=== PATIENT | female | born 1965 | race American Indian/Alaskan Native ===

== ENCOUNTER 2019-02-05 18:58 | Observation (INO) | payer MEDICAID, SELFPAY ==
[2019-02-05] MEDS ORDERED: NACL 0.9% 1000 ML IV ONE (20:12)
--- NOTE | 2019-02-05 20:24 | Emergency Department Report ---
ED General Adult HPI - General Chief complaint: Medical Clearance Stated complaint: LBP Time Seen by Provider: 02/05/19 20:06 Source: EMS Mode of arrival: Stretcher Limitations: Physical Limitation - History of Present Illness Initial comments: Mrs. Goff is a 53 yo female who presents with left ankle pain from SNF. She twisted her ankle. 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 Had reported low blood pressure which has been confirmed here in our ED. Hx of CVA, COPD, anxiety, MDD, bipolar disorder, UTI, schizophrenia, chronic wound, diabetes, HTN. No other concerns. -: Gradual, unknown Location: left, lower extremity Severity scale (0 -10): 0 Consistency: constant Improves with: none Worsens with: none Associated Symptoms: denies other symptoms - Related Data Home Medications Medication Instructions Recorded Confirmed Last Taken Acyclovir [Zovirax Tab] 400 mg PO Q8H 04/15/16 04/15/16 Unknown Amlodipine Besylate [Norvasc] 10 mg PO DAILY 04/15/16 04/15/16 Unknown Aspirin [Aspirin TAB] 325 mg PO QDAY 04/15/16 04/15/16 Unknown AtorvaSTATin [Lipitor] 20 mg PO DAILY 04/15/16 04/15/16 Unknown Citalopram [Celexa] 20 mg PO QDAY 04/15/16 04/15/16 Unknown Clindamycin Phosphate [Cleocin T 60 ml TP DAILY 04/15/16 04/15/16 Unknown 1% TOPICAL LOTION] Donepezil [Aricept] 10 mg PO QDAY 04/15/16 04/15/16 Unknown Fluconazole [Diflucan TAB] 150 mg PO ONCE 04/15/16 04/15/16 Unknown Insulin Glargine [Lantus VIAL] 0 units SQ QHS 04/15/16 04/15/16 Unknown Insulin Regular, Human [HumuLIN R] 0 unit SQ ACHS 04/15/16 04/15/16 Unknown Potassium Chloride [Klor-Con 10] 10 meq PO DAILY 04/15/16 04/15/16 Unknown QUEtiapine [SEROquel] 25 mg PO BID 04/15/16 04/15/16 Unknown Quetiapine Fumarate [SEROquel] 50 mg PO BID 04/15/16 04/15/16 Unknown Sertraline [Zoloft] 50 mg PO QDAY 04/15/16 04/15/16 Unknown Terbinafine HCl [Antifungal] 30 gm TP DAILY 04/15/16 04/15/16 Unknown clonazePAM [Klonopin] 0.5 mg PO BID 04/15/16 04/15/16 Unknown hydroCHLOROthiazide [HCTZ] 25 mg PO QDAY 04/15/16 04/15/16 Unknown traMADol [Ultram 50 MG tab] 50 mg PO Q6HR PRN 04/15/16 04/15/16 Unknown Previous Rx's Medication Instructions Recorded Last Taken Type ALBUTEROL Inhaler (OR & NICU) 1 puff IH Q4H PRN #1 inha 11/06/16 Unknown Rx [ProAir HFA Inhaler] Prednisone [predniSONE 10 mg 10 mg PO .TAPER #1 tab.ds.pk 11/06/16 Unknown Rx (6-Day Pack, 21 Tabs)] levoFLOXacin [Levaquin TAB] 500 mg PO QDAY #6 tablet 11/06/16 Unknown Rx Allergies Allergy/AdvReac Type Severity Reaction Status Date / Time No Known Allergies Allergy Unverified 09/21/13 21:31 ED Review of Systems ROS: Stated complaint: LBP Other details as noted in HPI Comment: All other systems reviewed and negative Constitutional: denies: fever, malaise Cardiovascular: denies: chest pain Endocrine: denies: flushing ED Past Medical Hx - Past Medical History Previous Medical History?: Yes Hx Hypertension: Yes Hx CVA: Yes (3 years ago) Hx Congestive Heart Failure: No Hx Diabetes: No Hx Psychiatric Treatment: Yes Hx Asthma: No Hx COPD: No - Surgical History Additional Surgical History: Lives alone but family sees her everyday.. KALLIE - Social History Smoking Status: Former Smoker Substance Use Type: None - Medications Home Medications: Home Medications Medication Instructions Recorded Confirmed Last Taken Type Acyclovir [Zovirax Tab] 400 mg PO Q8H 04/15/16 04/15/16 Unknown History Amlodipine Besylate [Norvasc] 10 mg PO DAILY 04/15/16 04/15/16 Unknown History Aspirin [Aspirin TAB] 325 mg PO QDAY 04/15/16 04/15/16 Unknown History AtorvaSTATin [Lipitor] 20 mg PO DAILY 04/15/16 04/15/16 Unknown History Citalopram [Celexa] 20 mg PO QDAY 04/15/16 04/15/16 Unknown History Clindamycin Phosphate [Cleocin T 60 ml TP DAILY 04/15/16 04/15/16 Unknown History 1% TOPICAL LOTION] Donepezil [Aricept] 10 mg PO QDAY 04/15/16 04/15/16 Unknown History Fluconazole [Diflucan TAB] 150 mg PO ONCE 04/15/16 04/15/16 Unknown History Insulin Glargine [Lantus VIAL] 0 units SQ QHS 04/15/16 04/15/16 Unknown History Insulin Regular, Human [HumuLIN R] 0 unit SQ ACHS 04/15/16 04/15/16 Unknown History Potassium Chloride [Klor-Con 10] 10 meq PO DAILY 04/15/16 04/15/16 Unknown History QUEtiapine [SEROquel] 25 mg PO BID 04/15/16 04/15/16 Unknown History Quetiapine Fumarate [SEROquel] 50 mg PO BID 04/15/16 04/15/16 Unknown History Sertraline [Zoloft] 50 mg PO QDAY 04/15/16 04/15/16 Unknown History Terbinafine HCl [Antifungal] 30 gm TP DAILY 04/15/16 04/15/16 Unknown History clonazePAM [Klonopin] 0.5 mg PO BID 04/15/16 04/15/16 Unknown History hydroCHLOROthiazide [HCTZ] 25 mg PO QDAY 04/15/16 04/15/16 Unknown History traMADol [Ultram 50 MG tab] 50 mg PO Q6HR PRN 04/15/16 04/15/16 Unknown History ALBUTEROL Inhaler (OR & NICU) 1 puff IH Q4H PRN #1 inha 11/06/16 Unknown Rx [ProAir HFA Inhaler] Prednisone [predniSONE 10 mg 10 mg PO .TAPER #1 tab.ds.pk 11/06/16 Unknown Rx (6-Day Pack, 21 Tabs)] levoFLOXacin [Levaquin TAB] 500 mg PO QDAY #6 tablet 11/06/16 Unknown Rx ED Physical Exam - General Limitations: Physical Limitation General appearance: alert, in no apparent distress - Head Head exam: Present: atraumatic, normocephalic - Eye Eye exam: Present: normal appearance - ENT ENT exam: Present: mucous membranes moist - Neck Neck exam: Present: normal inspection - Respiratory Respiratory exam: Present: normal lung sounds bilaterally. Absent: respiratory distress, wheezes, rhonchi - Cardiovascular Cardiovascular Exam: Present: regular rate, normal rhythm, normal heart sounds. Absent: systolic murmur, diastolic murmur, rubs, gallop - GI/Abdominal GI/Abdominal exam: Present: soft, normal bowel sounds. Absent: distended, tenderness, guarding, rebound - Extremities Exam Extremities exam: Present: normal inspection - Back Exam Back exam: Present: normal inspection - Neurological Exam Neurological exam: Present: alert, oriented X3 - Psychiatric Psychiatric exam: Present: normal affect, normal mood - Skin Skin exam: Present: warm, dry, intact, normal color. Absent: rash ED Course Vital Signs 02/05/19 02/05/19 02/05/19 19:56 22:04 23:00 Temperature 97.9 F Pulse Rate 93 H 93 H 79 Respiratory 13 18 10 L Rate Blood Pressure 89/58 121/72 126/73 [Right] O2 Sat by Pulse 94 97 97 Oximetry ED Medical Decision Making - Lab Data Result diagrams: 02/05/19 20:22 02/05/19 20:22 Laboratory Results - last 24 hr 02/05/19 02/05/19 02/05/19 19:46 20:22 20:22 WBC 11.0 RBC 5.18 H Hgb 14.6 H Hct 44.6 H MCV 86 MCH 29 MCHC 33 RDW 14.6 Plt Count 270 Lymph % (Auto) 17.5 [place] % (Auto) 4.3 Eos % (Auto) 0.2 Baso % (Auto) 0.5 Lymph # 1.9 [place] # 0.5 Eos # 0.0 Baso # 0.1 Seg Neutrophils % 77.5 H Seg Neutrophils # 8.5 H Sodium 142 Potassium 4.3 Chloride 98.7 Carbon Dioxide 20 L Anion Gap 28 BUN 19 H Creatinine 1.2 Estimated GFR 56 BUN/Creatinine Ratio 16 Glucose 235 H POC Glucose 237 H Lactic Acid Calcium 9.8 Total Bilirubin < 0.20 AST 7 ALT 7 Alkaline Phosphatase 64 Total Protein 7.8 Albumin 3.6 L Albumin/Globulin Ratio 0.9 Urine Color Urine Turbidity Urine pH Ur Specific [place] Urine Protein Urine Glucose (UA) Urine Ketones Urine Blood Urine Nitrite Urine Bilirubin Urine Urobilinogen Ur Leukocyte Esterase Urine WBC (Auto) Urine RBC (Auto) U Epithel Cells (Auto) Urine Bacteria (Auto) Hyaline Casts Urine Mucus Valproic Acid 02/05/19 02/05/19 02/05/19 20:22 20:38 21:07 WBC RBC Hgb Hct MCV MCH MCHC RDW Plt Count Lymph % (Auto) [place] % (Auto) Eos % (Auto) Baso % (Auto) Lymph # [place] # Eos # Baso # Seg Neutrophils % Seg Neutrophils # Sodium Potassium Chloride Carbon Dioxide Anion Gap BUN Creatinine Estimated GFR BUN/Creatinine Ratio Glucose POC Glucose Lactic Acid 8.10 H* 6.90 H* Calcium Total Bilirubin AST ALT Alkaline Phosphatase Total Protein Albumin Albumin/Globulin Ratio Urine Color Urine Turbidity Urine pH Ur Specific [place] Urine Protein Urine Glucose (UA) Urine Ketones Urine Blood Urine Nitrite Urine Bilirubin Urine Urobilinogen Ur Leukocyte Esterase Urine WBC (Auto) Urine RBC (Auto) U Epithel Cells (Auto) Urine Bacteria (Auto) Hyaline Casts Urine Mucus Valproic Acid 47.5 L 02/05/19 Unknown WBC RBC Hgb Hct MCV MCH MCHC RDW Plt Count Lymph % (Auto) [place] % (Auto) Eos % (Auto) Baso % (Auto) Lymph # [place] # Eos # Baso # Seg Neutrophils % Seg Neutrophils # Sodium Potassium Chloride Carbon Dioxide Anion Gap BUN Creatinine Estimated GFR BUN/Creatinine Ratio Glucose POC Glucose Lactic Acid Calcium Total Bilirubin AST ALT Alkaline Phosphatase Total Protein Albumin Albumin/Globulin Ratio Urine Color Yellow Urine Turbidity Slightly-cloudy Urine pH 5.0 Ur Specific [place] 1.019 Urine Protein 30 mg/dl Urine Glucose (UA) Neg Urine Ketones Tr Urine Blood Neg Urine Nitrite Neg Urine Bilirubin Neg Urine Urobilinogen < 2.0 Ur Leukocyte Esterase Neg Urine WBC (Auto) 3.0 Urine RBC (Auto) < 1.0 U Epithel Cells (Auto) 2.0 Urine Bacteria (Auto) 2+ Hyaline Casts 6 Urine Mucus 2+ Valproic Acid Vital Signs - 24 hr 02/05/19 19:56 Temperature 97.9 F Pulse Rate 93 H Respiratory 13 Rate Blood Pressure 89/58 [Right] O2 Sat by Pulse 94 Oximetry Laboratory Results - last 24 hr 02/05/19 02/05/19 02/05/19 19:46 20:22 20:22 WBC 11.0 RBC 5.18 H Hgb 14.6 H Hct 44.6 H MCV 86 MCH 29 MCHC 33 RDW 14.6 Plt Count 270 Lymph % (Auto) 17.5 [place] % (Auto) 4.3 Eos % (Auto) 0.2 Baso % (Auto) 0.5 Lymph # 1.9 [place] # 0.5 Eos # 0.0 Baso # 0.1 Seg Neutrophils % 77.5 H Seg Neutrophils # 8.5 H Sodium 142 Potassium 4.3 Chloride 98.7 Carbon Dioxide 20 L Anion Gap 28 BUN 19 H Creatinine 1.2 Estimated GFR 56 BUN/Creatinine Ratio 16 Glucose 235 H POC Glucose 237 H Lactic Acid Calcium 9.8 Total Bilirubin < 0.20 AST 7 ALT 7 Alkaline Phosphatase 64 Troponin T NT-Pro-B Natriuret Pep Total Protein 7.8 Albumin 3.6 L Albumin/Globulin Ratio 0.9 Urine Color Urine Turbidity Urine pH Ur Specific [place] Urine Protein Urine Glucose (UA) Urine Ketones Urine Blood Urine Nitrite Urine Bilirubin Urine Urobilinogen Ur Leukocyte Esterase Urine WBC (Auto) Urine RBC (Auto) U Epithel Cells (Auto) Urine Bacteria (Auto) Hyaline Casts Urine Mucus Valproic Acid 02/05/19 02/05/19 02/05/19 20:22 20:38 21:07 WBC RBC Hgb Hct MCV MCH MCHC RDW Plt Count Lymph % (Auto) [place] % (Auto) Eos % (Auto) Baso % (Auto) Lymph # [place] # Eos # Baso # Seg Neutrophils % Seg Neutrophils # Sodium Potassium Chloride Carbon Dioxide Anion Gap BUN Creatinine Estimated GFR BUN/Creatinine Ratio Glucose POC Glucose Lactic Acid 8.10 H* 6.90 H* Calcium Total Bilirubin AST ALT Alkaline Phosphatase Troponin T NT-Pro-B Natriuret Pep Total Protein Albumin Albumin/Globulin Ratio Urine Color Urine Turbidity Urine pH Ur Specific [place] Urine Protein Urine Glucose (UA) Urine Ketones Urine Blood Urine Nitrite Urine Bilirubin Urine Urobilinogen Ur Leukocyte Esterase Urine WBC (Auto) Urine RBC (Auto) U Epithel Cells (Auto) Urine Bacteria (Auto) Hyaline Casts Urine Mucus Valproic Acid 47.5 L 02/05/19 02/05/19 22:02 Unknown WBC RBC Hgb Hct MCV MCH MCHC RDW Plt Count Lymph % (Auto) [place] % (Auto) Eos % (Auto) Baso % (Auto) Lymph # [place] # Eos # Baso # Seg Neutrophils % Seg Neutrophils # Sodium Potassium Chloride Carbon Dioxide Anion Gap BUN Creatinine Estimated GFR BUN/Creatinine Ratio Glucose POC Glucose Lactic Acid Calcium Total Bilirubin AST ALT Alkaline Phosphatase Troponin T < 0.010 NT-Pro-B Natriuret Pep 3107 H Total Protein Albumin Albumin/Globulin Ratio Urine Color Yellow Urine Turbidity Slightly-cloudy Urine pH 5.0 Ur Specific [place] 1.019 Urine Protein 30 mg/dl Urine Glucose (UA) Neg Urine Ketones Tr Urine Blood Neg Urine Nitrite Neg Urine Bilirubin Neg Urine Urobilinogen < 2.0 Ur Leukocyte Esterase Neg Urine WBC (Auto) 3.0 Urine RBC (Auto) < 1.0 U Epithel Cells (Auto) 2.0 Urine Bacteria (Auto) 2+ Hyaline Casts 6 Urine Mucus 2+ Valproic Acid - EKG Data 02/05/19 22:28 EKG obtained 2223 Normal sinus rhythm rate 95 beats a minute normal axis nonspecific T wave pattern diffuse T-wave inversions no ST elevation - Radiology Data Radiology results: report reviewed, image reviewed AP portable chest x-ray no acute process according to radiology report, possible avulsion fracture of the talar joint, according to her ankle foot x-rays - Medical Decision Making Hypotension with lactic acidosis DDX: sepsis, malignancy, medication, recent seizure activity Treated with broad spectrum antibiotics and 30 ml/kg IVF NS with improvement of blood pressure. No tachycardia or fever presents. No obvious source of infection Admitted to hospitalist service in stable condition Suspect avulsion talar fracture due to inadvertent injury with hx of hemiplegia, left posterior splint was applied to the affected extremity under my supervision. After application the extremity was neurovascularly intact with acceptable alignment. Critical Care Time: Yes Critical care time in (mins) excluding proc time.: 40 Critical care attestation.: If time is entered above; I have spent that time in minutes in the direct care of this critically ill patient, excluding procedure time. 40 minutes of critical care time excluding procedures were used in the care of the patient. Initially concerned for causes of shock such as hemorrhagic, cardiogenic versus septic shock. Patient required multiple assessments and interventions. I reviewed the electronic medical record and residential documentation. I spoke with information systems consultant involved in the care of the patient. ED Disposition Clinical Impression: Hypotension, Lactic acidosis, Closed avulsion fracture of left talus Disposition: OP ADMIT IP TO THIS HOSP Is pt being admited?: Yes Does the pt Need Aspirin: No Condition: Stable Referrals: ROCKY CALLEJAS MD [Primary Care Provider] - 3-5 Days
[2019-02-05 20:41] LABS: Basophils # (Auto) 0.1 K/mm3 (0.0-0.1); Basophils % (Auto) 0.5 % (0.0-1.8); Eosinophils % (Auto) 0.2 % (0.0-4.3); Hemoglobin 14.6 gm/dl (10.1-14.3); Lymphocytes # (Auto) 1.9 K/mm3 (1.2-5.4); Lymphocytes % (Auto) 17.5 % (13.4-35.0); Monocytes # (Auto) 0.5 K/mm3 (0.0-0.8); Monocytes % (Auto) 4.3 % (0.0-7.3)
[2019-02-05 20:51] LABS: Hematocrit 44.6 % (30.3-42.9); Mean Corpuscular Volume 86 fl (79-97); Red Blood Count 5.18 M/mm3 (3.65-5.03)
[2019-02-05 20:52] LABS: Mean Corpuscular HGB Conc 33 % (30-34); Platelet Count 270 K/mm3 (140-440); Red Cell Distribution Width 14.6 % (13.2-15.2)
[2019-02-05 21:02] LABS: Alanine Aminotransferase 7 units/L (7-56); Albumin 3.6 g/dL (3.9-5); BUN/Creatinine Ratio 16; Blood Urea Nitrogen 19 mg/dL (7-17); Calcium 9.8 mg/dL (8.4-10.2); Hemolysis Index 5
[2019-02-05 21:29] LABS: Bacteria,Urine 2+ /HPF (Negative); Bilirubin,Urine NEG (Negative); Blood,Urine NEG (Negative); Color,Urine Yellow (Yellow); Hyaline Casts,Urine 6 /LPF; Mucus,Urine 2+ /HPF; RBC,Urine < 1.0 /HPF (0.0-6.0); Urobilinogen,Urine < 2.0 mg/dL (<2.0)
--- NOTE | 2019-02-05 21:38 | XRay Report ---
PROCEDURE: XR CHEST 1V AP TECHNIQUE: Chest radiograph single view. HISTORY: hypotension COMPARISONS: None . FINDINGS: Heart: Normal. Mediastinum/Vessels: Normal. Lungs/Pleural space: Normal. Bony thorax: No acute osseous abnormality. Life support devices: None. IMPRESSION: No acute cardiopulmonary abnormality. This document is electronically signed by Elana Monae MD., Feb 05 2019 09:35:56 PM ET
--- NOTE | 2019-02-05 21:42 | XRay Report ---
PROCEDURE: XR ANKLE 3+V LT TECHNIQUE: 3 views of the left ankle obtained. HISTORY: ankle pain COMPARISONS: None FINDINGS: Small osseous fragment seen of the lateral aspect of the talus may represent avulsion fracture. Ankle mortise is intact. IMPRESSION: Small osseous fragment seen of the lateral aspect of the talus may represent avulsion fracture. . This document is electronically signed by Elana Monae MD., Feb 05 2019 09:39:48 PM ET
--- NOTE | 2019-02-05 21:52 | XRay Report ---
PROCEDURE: XR FOOT 3+V LT TECHNIQUE: 3 views of the right foot obtained. HISTORY: foot pain COMPARISONS: None FINDINGS: Bones are osteopenic limiting full evaluation. No gross acute fracture visualized. Degenerative wallace es seen at the first tarsal/metatarsal joint. IMPRESSION: No gross acute fracture visualized. Degenerative changes seen at the first tarsal/metatarsal joint. This document is electronically signed by Elana Monae MD., Feb 05 2019 09:50:00 PM ET
[2019-02-05] MEDS ORDERED: SODIUM CHLORIDE FLUSH SYRINGE 10 ML IV PRN (22:59)
[2019-02-05] MEDS ORDERED: TYLENOL PO PRN (22:59)
[2019-02-05] MEDS ORDERED: ZOFRAN IV PRN (22:59)
[2019-02-05] MEDS: MAXIPIME/NS 2 GM/100 ML 2 GM/100 ML BAG IV SCH (23:00)
--- NOTE | 2019-02-05 23:01 | History and Physical Report ---
History of Present Illness Date of examination: 02/05/19 History of present illness: 51-year-old woman history of hypertension, diabetes, CVA with left-sided hemiparesis, bipolar sent to the emergency room for evaluation of low blood pressure. Patient stated that she twisted her ankle, her history is very difficult to obtain from patient, unable to obtain review of systems PAST MEDICAL HISTORY :hypertension, diabetes, CVA with left-sided hemiparesis, bipolar PAST SURGICAL HISTORY: Tubal ligation SOCIAL HISTORY: Denies focal, , drugs, smoke a pack a day FAMILY HISTORY: Hypertension Medications and Allergies Allergies Allergy/AdvReac Type Severity Reaction Status Date / Time No Known Allergies Allergy Unverified 09/21/13 21:31 Home Medications Medication Instructions Recorded Confirmed Last Taken Type Acyclovir [Zovirax Tab] 400 mg PO Q8H 04/15/16 04/15/16 Unknown History Amlodipine Besylate [Norvasc] 10 mg PO DAILY 04/15/16 04/15/16 Unknown History Aspirin [Aspirin TAB] 325 mg PO QDAY 04/15/16 04/15/16 Unknown History AtorvaSTATin [Lipitor] 20 mg PO DAILY 04/15/16 04/15/16 Unknown History Citalopram [Celexa] 20 mg PO QDAY 04/15/16 04/15/16 Unknown History Clindamycin Phosphate [Cleocin T 60 ml TP DAILY 04/15/16 04/15/16 Unknown History 1% TOPICAL LOTION] Donepezil [Aricept] 10 mg PO QDAY 04/15/16 04/15/16 Unknown History Fluconazole [Diflucan TAB] 150 mg PO ONCE 04/15/16 04/15/16 Unknown History Insulin Glargine [Lantus VIAL] 0 units SQ QHS 04/15/16 04/15/16 Unknown History Insulin Regular, Human [HumuLIN R] 0 unit SQ ACHS 04/15/16 04/15/16 Unknown History Potassium Chloride [Klor-Con 10] 10 meq PO DAILY 04/15/16 04/15/16 Unknown History QUEtiapine [SEROquel] 25 mg PO BID 04/15/16 04/15/16 Unknown History Quetiapine Fumarate [SEROquel] 50 mg PO BID 04/15/16 04/15/16 Unknown History Sertraline [Zoloft] 50 mg PO QDAY 04/15/16 04/15/16 Unknown History Terbinafine HCl [Antifungal] 30 gm TP DAILY 04/15/16 04/15/16 Unknown History clonazePAM [Klonopin] 0.5 mg PO BID 04/15/16 04/15/16 Unknown History hydroCHLOROthiazide [HCTZ] 25 mg PO QDAY 04/15/16 04/15/16 Unknown History traMADol [Ultram 50 MG tab] 50 mg PO Q6HR PRN 04/15/16 04/15/16 Unknown History ALBUTEROL Inhaler (OR & NICU) 1 puff IH Q4H PRN #1 inha 11/06/16 Unknown Rx [ProAir HFA Inhaler] Prednisone [predniSONE 10 mg 10 mg PO .TAPER #1 tab.ds.pk 11/06/16 Unknown Rx (6-Day Pack, 21 Tabs)] levoFLOXacin [Levaquin TAB] 500 mg PO QDAY #6 tablet 11/06/16 Unknown Rx Active Meds: Active Medications Cefepime HCl (Maxipime/Ns 2 Gm/100 Ml) 2 gm in 100 mls @ 200 mls/hr IV Q12H COUNT INCLUDES THE [facility]; Protocol Exam - Physical Exam Narrative exam: en. appearance: Patient lying in bed, no apparent distress HEENT: Normocephalic, atraumatic, pupils equally round and reactive to light, extraocular movement intact, and no sclericterus,. No JVD or thyromegaly or nodule,neck supple, no carotid bruit ,mucous membranes moist, no exudate or erythema Heart: S1, S2, regular rate and rhythm Lungs: Decreased course breath sounds bilaterally, breathing comfortable Abdomen: Positive bowel sounds, nontender, nondistended, no organomegaly Extremity: No edema, cyanosis, clubbing Skin: No rash, nodules, warm, dry Neuro: Oriented 3, cranial nerves II-12 intact, speech is fluent sensory intact - Constitutional Vitals: Temp Pulse Resp BP Pulse Ox 97.9 F 79 10 L 126/73 97 02/05/19 19:56 02/05/19 23:00 02/05/19 23:00 02/05/19 23:00 02/05/19 23:00 Results - Labs CBC & Chem 7: 02/05/19 20:22 02/05/19 20:22 Labs: Abnormal lab results 02/05/19 02/05/19 02/05/19 Range/Units 19:46 20:22 20:22 RBC 5.18 H (3.65-5.03) M/mm3 Hgb 14.6 H (10.1-14.3) gm/dl Hct 44.6 H (30.3-42.9) % Seg Neutrophils % 77.5 H (40.0-70.0) % Seg Neutrophils # 8.5 H (1.8-7.7) K/mm3 Carbon Dioxide 20 L (22-30) mmol/L BUN 19 H (7-17) mg/dL Glucose 235 H (65-100) mg/dL POC Glucose 237 H (70-105) Lactic Acid (0.7-2.0) mmol/L Albumin 3.6 L (3.9-5) g/dL Valproic Acid (50-100) ug/mL 02/05/19 02/05/19 02/05/19 Range/Units 20:22 20:38 21:07 RBC (3.65-5.03) M/mm3 Hgb (10.1-14.3) gm/dl Hct (30.3-42.9) % Seg Neutrophils % (40.0-70.0) % Seg Neutrophils # (1.8-7.7) K/mm3 Carbon Dioxide (22-30) mmol/L BUN (7-17) mg/dL Glucose (65-100) mg/dL POC Glucose (70-105) Lactic Acid 8.10 H* 6.90 H* (0.7-2.0) mmol/L Albumin (3.9-5) g/dL Valproic Acid 47.5 L (50-100) ug/mL - Imaging and Cardiology Chest x-ray: report reviewed Assessment and Plan XRAY of foot and ankle are reviewed Assessment Hypotension Possible Ankle Fracture Diabetes History of CVA with left hemiparesis Bipolar Plan Admit to medicine Start IV fluid, follow cultures, empiric antibiotics started Consults orthopedic, check d-dimer Check fingersticks initiate insulin sliding scale Continue appropriate outpatient medication start DVT prophylaxis Addendum check d-dimer, check v/q
[2019-02-05] MEDS ORDERED: D50W (25GM) Syringe IV PRN (23:28)
[2019-02-05] MEDS ORDERED: NACL 0.9% 1000 ML 1,000 ML IV SCH (23:45)
[2019-02-06 06:51] LABS: BUN/Creatinine Ratio 26; Blood Urea Nitrogen 18 mg/dL (7-17); Calcium 8.4 mg/dL (8.4-10.2); Hemolysis Index 9
[2019-02-06 06:59] LABS: Basophils # (Auto) 0.1 K/mm3 (0.0-0.1); Basophils % (Auto) 0.6 % (0.0-1.8); Eosinophils # (Auto) 0.1 K/mm3 (0.0-0.4); Eosinophils % (Auto) 1.3 % (0.0-4.3); Hematocrit 38.7 % (30.3-42.9); Lymphocytes # (Auto) 3.6 K/mm3 (1.2-5.4); Lymphocytes % (Auto) 40.9 % (13.4-35.0); Mean Corpuscular HGB Conc 34 % (30-34); Mean Corpuscular Volume 84 fl (79-97); Monocytes # (Auto) 0.7 K/mm3 (0.0-0.8); Monocytes % (Auto) 8.1 % (0.0-7.3); Platelet Count 241 K/mm3 (140-440); Red Blood Count 4.64 M/mm3 (3.65-5.03); Red Cell Distribution Width 14.2 % (13.2-15.2)
[2019-02-06] MEDS: HumaLOG SUB-Q SCH ×3 (07:30→17:42)
[2019-02-06] MEDS ORDERED: LOVENOX SUB-Q SCH (10:00)
[2019-02-06] MEDS ORDERED: SODIUM CHLORIDE FLUSH SYRINGE 10 ML IV SCH (10:00)
[2019-02-06 12:56] VITALS: BP 97/74
--- NOTE | 2019-02-06 15:01 | Discharge Summary ---
Providers - Providers Date of Admission: 02/05/19 22:59 Date of discharge: 02/06/19 Attending physician: JAYLYN FLETCHER 02/05/19 23:16 Consult to Physician [CONS] Routine Comment: Consulting Provider: KAITLIN THORNTON Physician Instructions: Reason For Exam: ankle fx Primary care physician: PROGRAM SUPPORT CLERK Hospitalization Condition: Stable Hospital course: Hypotension--resolved--Adjusy medicines Ankle sprain History of CVA with left hemiparesis Bipolar V/q scan --Negative Disposition: DC-01 TO HOME OR SELFCARE Core Measure Documentation - Palliative Care Palliative Care/ Comfort Measures: Not Applicable - Core Measures Any of the following diagnoses?: none Exam - Constitutional Vitals: Temp Pulse Resp BP Pulse Ox 98.9 F 53 L 20 97/74 96 02/06/19 11:30 02/06/19 11:30 02/06/19 11:30 02/06/19 11:30 02/06/19 12:49 General appearance: Present: no acute distress, well-nourished - EENT Eyes: Present: PERRL ENT: hearing intact, clear oral mucosa - Neck Neck: Present: supple, normal ROM - Respiratory Respiratory effort: normal Respiratory: bilateral: CTA - Cardiovascular Heart Sounds: Present: S1 & S2. Absent: rub, click - Extremities Extremities: no ischemia, pulses intact, pulses symmetrical, No edema Peripheral Pulses: within normal limits - Abdominal General gastrointestinal: Present: soft, non-tender, non-distended, normal bowel sounds Female genitourinary: Present: normal - Rectal Rectal Exam: deferred - Integumentary Integumentary: Present: clear, warm, dry - Musculoskeletal Musculoskeletal: gait normal, strength equal bilaterally - Psychiatric Psychiatric: appropriate mood/affect, intact judgment & insight - Neurologic Neurologic: CNII-XII intact, moves all extremities - Allied Health Allied health notes reviewed: nursing, case management Plan Weight Bearing Status: Weight Bear as Tolerated Diet: low cholesterol, low salt Follow up with: ROCKY CALLEJAS MD [Staff Physician] - 3-5 Days
--- NOTE | 2019-02-06 15:05 | Nuclear Medicine Report ---
LUNG SCAN, VENTILATION AND PERFUSION: History: Evaluate for PE. Technique: 5mci of Tc99m MAA was infused for the perfusion images. 15mci XE 133 gas was inhaled for the ventilatory images. Correlation is made with a chest x-ray dated 02/05/19. Findings: Inhalation of Xenon gas demonstrates a normal distribution of the activity throughout both lungs. The wash out phases show no focal retention of activity. After injection of Technetium 99m macroaggregated albumin gamma camera imaging of the lungs in multiple projections demonstrates normal pulmonary contours with a homogeneous distribution of activity. No focal areas of perfusion deficiency are identified. IMPRESSION: Low probability for pulmonary embolus.
--- NOTE | 2019-02-06 16:30 | Consultation ---
History of Present Illness - [facility] Consult date: 02/06/19 Consult reason: joint pain History of present illness: 51-year-old woman history of hypertension, diabetes, CVA with left-sided hemiparesis, bipolar sent to the emergency room for evaluation of low blood pressure. Patient stated that she twisted her ankle, her history is very difficult to obtain from patient, unable to obtain review of systems Medications and Allergies Allergies Allergy/AdvReac Type Severity Reaction Status Date / Time No Known Allergies Allergy Unverified 09/21/13 21:31 Home Medications Medication Instructions Recorded Confirmed Last Taken Type Acyclovir [Zovirax Tab] 400 mg PO Q8H 04/15/16 04/15/16 Unknown History Amlodipine Besylate [Norvasc] 10 mg PO DAILY 04/15/16 04/15/16 Unknown History Aspirin 325 mg PO QDAY 04/15/16 04/15/16 Unknown History AtorvaSTATin [Lipitor] 20 mg PO DAILY 04/15/16 04/15/16 Unknown History Citalopram [Celexa] 20 mg PO QDAY 04/15/16 04/15/16 Unknown History Clindamycin Phosphate [Cleocin T 60 ml TP DAILY 04/15/16 04/15/16 Unknown History 1% TOPICAL LOTION] Donepezil [Aricept] 10 mg PO QDAY 04/15/16 04/15/16 Unknown History Fluconazole [Diflucan TAB] 150 mg PO ONCE 04/15/16 04/15/16 Unknown History Insulin Glargine [Lantus VIAL] 0 units SQ QHS 04/15/16 04/15/16 Unknown History Insulin Regular, Human [HumuLIN R] 0 unit SQ ACHS 04/15/16 04/15/16 Unknown History Potassium Chloride [Klor-Con 10] 10 meq PO DAILY 04/15/16 04/15/16 Unknown History QUEtiapine [SEROquel] 25 mg PO BID 04/15/16 04/15/16 Unknown History Quetiapine Fumarate [SEROquel] 50 mg PO BID 04/15/16 04/15/16 Unknown History Sertraline [Zoloft] 50 mg PO QDAY 04/15/16 04/15/16 Unknown History Terbinafine HCl [Antifungal 1% 30 gm TP DAILY 04/15/16 04/15/16 Unknown History CREAM] clonazePAM [Klonopin] 0.5 mg PO BID 04/15/16 04/15/16 Unknown History hydroCHLOROthiazide [HCTZ] 25 mg PO QDAY 04/15/16 04/15/16 Unknown History traMADol [Ultram 50 MG tab] 50 mg PO Q6HR PRN 04/15/16 04/15/16 Unknown History ALBUTEROL Inhaler (OR & NICU) 1 puff IH Q4H PRN #1 inha 11/06/16 Unknown Rx [ProAir HFA Inhaler] Active Meds: Active Medications Acetaminophen (Tylenol) 650 mg PO Q4H PRN PRN Reason: Pain MILD(1-3)/Fever >100.5/MORAN Dextrose (D50w (25gm) Syringe) 50 ml IV PRN PRN PRN Reason: Hypoglycemia Last Admin: 02/06/19 07:51 Dose: 50 ml Documented by: Enoxaparin Sodium (Lovenox) 40 mg SUB-Q QDAY MARYELLEN Last Admin: 02/06/19 09:36 Dose: Not Given Documented by: Cefepime HCl (Maxipime/Ns 2 Gm/100 Ml) 2 gm in 100 mls @ 200 mls/hr IV Q12H MARYELLEN; Protocol Last Admin: 02/05/19 23:00 Dose: 200 mls/hr Documented by: Sodium Chloride (Nacl 0.9% 1000 Ml) 1,000 mls @ 75 mls/hr IV DIRECT MARYELLEN Last Admin: 02/06/19 01:46 Dose: 75 mls/hr Documented by: Insulin Human Lispro (Humalog) 0 unit SUB-Q ACHS MARYELLEN; Protocol Last Admin: 02/06/19 11:51 Dose: Not Given Documented by: Ondansetron HCl (Zofran) 4 mg IV Q8H PRN PRN Reason: Nausea And Vomiting Sodium Chloride (Sodium Chloride Flush Syringe 10 Ml) 10 ml IV BID MARYELLEN Sodium Chloride (Sodium Chloride Flush Syringe 10 Ml) 10 ml IV PRN PRN PRN Reason: LINE FLUSH Last Admin: 02/05/19 23:16 Dose: 10 ml Documented by: Physical Examination - Physical exam Narrative exam: Left ankle -no obvious swelling or deformity was noted skin was intact Plan x-rays were reviewed by me and show no obvious fracture or dislocation Assessment and Plan Left ankle pain Plan x-rays done of the left ankle and foot revealed no obvious fracture or dislocation therefore recommend treating patient conservatively at this point
[2019-02-06] MEDS: MAXIPIME/NS 2 GM/100 ML 2 GM/100 ML BAG IV SCH (17:04)
== END 2019-02-06 18:15 ==
LOC: ED 18:58 → INTOOBSV 22:59 → 3B-SURG 22:59
PROVIDERS: ADMIT Internal Medicine; ATTEND Internal Medicine
DX: S93.402A Sprain of unspecified ligament of left ankle, initial encounter (principal); I95.9 Hypotension, unspecified; I63.9 Cerebral infarction, unspecified; G81.94 Hemiplegia, unspecified affecting left nondominant side; E11.9 Type 2 diabetes mellitus without complications; F31.9 Bipolar disorder, unspecified; I10 Essential (primary) hypertension; F17.210 Nicotine dependence, cigarettes, uncomplicated; Z98.51 Tubal ligation status; Z79.899 Other long term (current) drug therapy; X50.0XXA Overexertion from strenuous movement or load, initial encounter; Y93.9 Activity, unspecified; Y92.9 Unspecified place or not applicable
CPT/HCPCS: 36415; 71045; 73610; 73630; 78582; 80048; 80053; 80164; 81001; 82140; 82962; 83880; 84484; 85025; 85379; 87040; 93005; 93010; 96361; 96365; 96375; 99291; A9540; A9558; G0378; J0692; J7030

== ENCOUNTER 2020-01-06 23:02 | Emergency (ER) | payer MEDICAID ==
--- NOTE | 2020-01-06 23:28 | Emergency Department Report ---
ED Fall HPI - General Chief Complaint: Fall Stated Complaint: FELL OUT OF BED Time Seen by Provider: 01/06/20 23:18 Source: patient, EMS, RN notes reviewed Mode of arrival: Ambulatory - History of Present Illness Initial Comments: Patient is 54-year-old female with history of CVA and schizophrenia. Patient brought to the emergency room via EMS from a alf for evaluation after a fall that just happened prior to coming to the ER. Patient is alert, oriented x3 in no acute distress and able to provide good history. Patient stated that she fell out of bed and hit her head. Patient denied any loss of consciousness. Patient denied any other injuries. MD Complaint: fall -: This evening Fall From: out of bed When Fall Occurred: just prior to arrival Fall Witnessed: yes, by living facility s Place Fall Occurred: alf/SNF Loss of Consciousness: none Prolonged Down Time?: no Symptoms Prior to Fall: none Location: head Associated Symptoms: denies - Related Data Home Medications Medication Instructions Recorded Confirmed Last Taken Acyclovir [Zovirax Tab] 400 mg PO Q8H 04/15/16 04/15/16 Unknown Amlodipine Besylate [Norvasc] 10 mg PO DAILY 04/15/16 04/15/16 Unknown Aspirin 325 mg PO QDAY 04/15/16 04/15/16 Unknown AtorvaSTATin [Lipitor] 20 mg PO DAILY 04/15/16 04/15/16 Unknown Citalopram [Celexa] 20 mg PO QDAY 04/15/16 04/15/16 Unknown Clindamycin Phosphate [Cleocin T 60 ml TP DAILY 04/15/16 04/15/16 Unknown 1% TOPICAL LOTION] Fluconazole [Diflucan TAB] 150 mg PO ONCE 04/15/16 04/15/16 Unknown Insulin Glargine [Lantus VIAL] 0 units SQ QHS 04/15/16 04/15/16 Unknown Insulin Regular, Human [HumuLIN R] 0 unit SQ ACHS 04/15/16 04/15/16 Unknown Potassium Chloride [Klor-Con 10] 10 meq PO DAILY 04/15/16 04/15/16 Unknown QUEtiapine [SEROquel] 25 mg PO BID 04/15/16 04/15/16 Unknown Quetiapine Fumarate [SEROquel] 50 mg PO BID 04/15/16 04/15/16 Unknown Sertraline [Zoloft] 50 mg PO QDAY 04/15/16 04/15/16 Unknown Terbinafine HCl [Antifungal 1% 30 gm TP DAILY 04/15/16 04/15/16 Unknown CREAM] clonazePAM [Klonopin] 0.5 mg PO BID 04/15/16 04/15/16 Unknown donepeziL [Aricept] 10 mg PO QDAY 04/15/16 04/15/16 Unknown hydroCHLOROthiazide [HCTZ] 25 mg PO QDAY 04/15/16 04/15/16 Unknown traMADoL [Ultram 50 MG tab] 50 mg PO Q6HR PRN 04/15/16 04/15/16 Unknown Previous Rx's Medication Instructions Recorded Last Taken Type Albuterol INH(or & Nicu Only) 1 puff IH Q4H PRN #1 inha 11/06/16 Unknown Rx [ProAir HFA Inhaler] Allergies Allergy/AdvReac Type Severity Reaction Status Date / Time No Known Allergies Allergy Unverified 09/21/13 21:31 ED Review of Systems ROS: Stated complaint: FELL OUT OF BED Other details as noted in HPI Comment: All other systems reviewed and negative Constitutional: denies: chills, fever Respiratory: denies: cough Cardiovascular: denies: chest pain, palpitations Gastrointestinal: denies: abdominal pain, nausea Musculoskeletal: denies: back pain Neurological: denies: headache ED Past Medical Hx - Past Medical History Hx Hypertension: Yes Hx CVA: Yes (3 years ago) Hx Congestive Heart Failure: No Hx Diabetes: No Hx Psychiatric Treatment: Yes Hx Asthma: No Hx COPD: No - Surgical History Additional Surgical History: Lives alone but family sees her everyday.. KALLIE - Social History Smoking Status: Former Smoker Substance Use Type: None - Medications Home Medications: Home Medications Medication Instructions Recorded Confirmed Last Taken Type Acyclovir [Zovirax Tab] 400 mg PO Q8H 04/15/16 04/15/16 Unknown History Amlodipine Besylate [Norvasc] 10 mg PO DAILY 04/15/16 04/15/16 Unknown History Aspirin 325 mg PO QDAY 04/15/16 04/15/16 Unknown History AtorvaSTATin [Lipitor] 20 mg PO DAILY 04/15/16 04/15/16 Unknown History Citalopram [Celexa] 20 mg PO QDAY 04/15/16 04/15/16 Unknown History Clindamycin Phosphate [Cleocin T 60 ml TP DAILY 04/15/16 04/15/16 Unknown History 1% TOPICAL LOTION] Fluconazole [Diflucan TAB] 150 mg PO ONCE 04/15/16 04/15/16 Unknown History Insulin Glargine [Lantus VIAL] 0 units SQ QHS 04/15/16 04/15/16 Unknown History Insulin Regular, Human [HumuLIN R] 0 unit SQ ACHS 04/15/16 04/15/16 Unknown History Potassium Chloride [Klor-Con 10] 10 meq PO DAILY 04/15/16 04/15/16 Unknown History QUEtiapine [SEROquel] 25 mg PO BID 04/15/16 04/15/16 Unknown History Quetiapine Fumarate [SEROquel] 50 mg PO BID 04/15/16 04/15/16 Unknown History Sertraline [Zoloft] 50 mg PO QDAY 04/15/16 04/15/16 Unknown History Terbinafine HCl [Antifungal 1% 30 gm TP DAILY 04/15/16 04/15/16 Unknown History CREAM] clonazePAM [Klonopin] 0.5 mg PO BID 04/15/16 04/15/16 Unknown History donepeziL [Aricept] 10 mg PO QDAY 04/15/16 04/15/16 Unknown History hydroCHLOROthiazide [HCTZ] 25 mg PO QDAY 04/15/16 04/15/16 Unknown History traMADoL [Ultram 50 MG tab] 50 mg PO Q6HR PRN 04/15/16 04/15/16 Unknown History Albuterol INH(or & Nicu Only) 1 puff IH Q4H PRN #1 inha 11/06/16 Unknown Rx [ProAir HFA Inhaler] ED Physical Exam - General Limitations: Physical Limitation General appearance: alert, in no apparent distress - Head Head exam: Present: atraumatic, normocephalic, normal inspection - Eye Eye exam: Present: normal appearance - ENT ENT exam: Present: normal exam, normal orophraynx, mucous membranes moist - Neck Neck exam: Present: normal inspection, full ROM. Absent: tenderness, meningism us - Respiratory Respiratory exam: Present: normal lung sounds bilaterally. Absent: chest wall tenderness - Cardiovascular Cardiovascular Exam: Present: regular rate, normal rhythm, normal heart sounds - GI/Abdominal GI/Abdominal exam: Present: soft, normal bowel sounds. Absent: distended, tenderness, guarding, rebound, rigid - Extremities Exam Extremities exam: Present: normal inspection - Back Exam Back exam: Present: normal inspection. Absent: tenderness - Neurological Exam Neurological exam: Present: alert, oriented X3 - Skin Skin exam: Present: warm, intact, normal color ED Course Vital Signs 01/06/20 01/07/20 01/07/20 23:30 00:00 00:15 Temperature 98.0 F Pulse Rate 88 92 H 88 Respiratory 12 12 12 Rate Blood Pressure 114/74 100/55 100/55 Blood Pressure 115/79 [Left] O2 Sat by Pulse 95 93 94 Oximetry ED Medical Decision Making - Radiology Data Radiology results: report reviewed - Medical Decision Making Patient is 54-year-old female with history of CVA and schizophrenia. Patient brought to the emergency room via EMS from a alf for evaluation after a fall that just happened prior to coming to the ER. Patient is alert, oriented x3 in no acute distress and able to provide good history. Patient stated that she fell out of bed and hit her head. Patient denied any loss of consciousness. Patient denied any other injuries. Patient remained stable in the ER. CT head is negative for acute finding. Patient will be sent back to her alf with an instruction of minor head injury and fall injury prevention. Critical care attestation.: If time is entered above; I have spent that time in minutes in the direct care of this critically ill patient, excluding procedure time. ED Disposition Clinical Impression: Fall, Head injury Disposition: DC-01 TO HOME OR SELFCARE Is pt being admited?: No Condition: Stable Instructions: Fall Prevention (ED), Minor Head Injury (ED) Referrals: ROCKY CALLEJAS MD [Primary Care Provider] - 3-5 Days
--- NOTE | 2020-01-07 00:11 | Cat Scan Report ---
CT head/brain wo con INDICATION / CLINICAL INFORMATION: MAIN: Head injury, PT HAS HX OF CVA . TECHNIQUE: Axial CT imaging of the brain was obtained without contrast. Coronal and sagittal reformatted imaging obtained and reviewed. All CT scans at this location are performed using CT dose reduction for ALAR A by means of automated exposure control. COMPARISON: Prior head CT, 05/15/2014 FINDINGS: No intracranial hemorrhage, mass, or midline shift identified. No extra-axial fluid collection. There is evidence of multifocal bilateral cerebral and cerebellar infarcts. There is prominent bilateral e ncephalomalacia, greater on the right, unchanged from prior study consistent with bilateral CVA with extensive microvascular angiopathy.. No definite evidence for acute CVA, although underlying acute CVA may be difficult to recognize due t o the extensive encephalomalacia.. Ventricular system and basilar cisterns are grossly unremarkable. Visualized paranasal sinuses and mastoid air cells are well aerated and clear. No calvarial fracture identified. IMPRESSION: 1. No definite acute intracranial abnormality. Overall, appearance of the head CT is unchanged since 2013. 2. Extensive bilateral encephalomalacia consistent with bilateral multifocal CVAs. Signer Name: Milla Salas MD Signed: 01/07/2020 12:06 AM Workstation Name: [id number]
[2020-01-07 02:14] VITALS: BP 103/64
== END 2020-01-07 02:35 | disposition home or self-care (01) ==
LOC: ED 23:02
DX: S09.90XA Unspecified injury of head, initial encounter (principal); I10 Essential (primary) hypertension; Z86.73 Personal history of transient ischemic attack (TIA), and cerebral infarction without residual deficits; Z98.890 Other specified postprocedural states; Z87.891 Personal history of nicotine dependence; Z79.2 Long term (current) use of antibiotics; Z79.899 Other long term (current) drug therapy; W06.XXXA Fall from bed, initial encounter; Y93.89 Activity, other specified; Y92.129 Unspecified place in nursing home as the place of occurrence of the external cause; Y99.8 Other external cause status
CPT/HCPCS: 70450

== ENCOUNTER 2020-06-13 16:38 | Emergency (ER) | payer MEDICAID ==
--- NOTE | 2020-06-13 17:37 | Emergency Department Report ---
ED Fall HPI - General Stated Complaint: LEFT LEG BROKEN Time Seen by Provider: 06/13/20 17:22 Source: EMS - History of Present Illness Initial Comments: Patient is 54-year-old female with history of CVA and left sided paralysis. Patient is very contracted in the left side. Patient brought to the emergency room via EMS from [facility] for evaluation after a fall from a wheelchair yesterday, patient had an x-ray done by her primary doctor and found that she had a left tibia fracture and she was sent here for further evaluation and management. Patient is alert, oriented x3 and in no acute distress except for the pain to the left leg. Patient denied any head injury, headache, neck pain, chest pain or abdominal pain. No other extremities pain however patient is also complaining of lower back pain. Patient denied any hip pain. MD Complaint: fall -: Last night Fall From: wheelchair When Fall Occurred: 24 hours [employer] Fall Witnessed: yes, by living facility s Place Fall Occurred: group home/SNF Loss of Consciousness: none Prolonged Down Time?: no Symptoms Prior to Fall: none Location: back Location - Extremities: Left: Knee, Leg, Ankle Severity scale (0 -10): 6 Quality: sharp - Related Data Home Medications Medication Instructions Recorded Confirmed Last Taken Amlodipine Besylate [Norvasc] 10 mg PO DAILY 04/15/16 06/13/20 Unknown AtorvaSTATin [Lipitor] 20 mg PO DAILY 04/15/16 06/13/20 Unknown Potassium Chloride [Klor-Con 10] 10 meq PO DAILY 04/15/16 06/13/20 Unknown hydroCHLOROthiazide [HCTZ] 25 mg PO QDAY 04/15/16 06/13/20 Unknown Acetaminophen [Tylenol] 325 mg PO Q4HR 06/13/20 06/13/20 Unknown Albuterol Mdi (or & Nicu Only) 1 puff IH PRN PRN 06/13/20 06/13/20 Unknown [ProAir HFA Inhaler] Aspirin [Adult Aspirin] 81 mg PO DAILY 06/13/20 06/13/20 Unknown DULoxetine [Cymbalta] 60 mg PO QDAY 06/13/20 06/13/20 Unknown Divalproex [Cary SHOOK] 500 mg PO BID 06/13/20 06/13/20 Unknown Insulin Glargine,Hum.rec.anlog 60 units SQ BID 06/13/20 06/13/20 Unknown [Lantus Solostar] Linagliptin [Tradjenta] 5 mg PO QDAY 06/13/20 06/13/20 Unknown Liraglutide [Victoza 2-Lisandro] 1.8 mg SQ QDAY 06/13/20 06/13/20 Unknown Lispro Insulin [HumaLOG] 15 unit SQ WMHS 06/13/20 06/13/20 Unknown Mag Hydrox/Aluminum Hyd/Simeth 30 ml PO Q12H 06/13/20 06/13/20 Unknown [Maalox Advanced Suspension] Magnesium Hydroxide [Milk of 1,200 mg PO Q48H 06/13/20 06/13/20 Unknown Magnesia] Memantine Xr [Namenda Xr] 5 mg PO BID 06/13/20 06/13/20 Unknown Sennosides [Senna] 8.6 mg PO QHS 06/13/20 06/13/20 Unknown donepeziL [Aricept] 10 mg PO QDAY 06/13/20 06/13/20 Unknown Previous Rx's Medication Instructions Recorded Last Taken Type Albuterol Mdi (or & Nicu Only) 1 puff IH Q4H PRN #1 inha 11/06/16 Unknown Rx [ProAir HFA Inhaler] Allergies Allergy/AdvReac Type Severity Reaction Status Date / Time No Known Allergies Allergy Unverified 09/21/13 21:31 ED Review of Systems ROS: Stated complaint: LEFT LEG BROKEN Other details as noted in HPI Comment: All other systems reviewed and negative Constitutional: denies: chills, fever Respiratory: denies: cough, shortness of breath, SOB with exertion Cardiovascular: denies: chest pain Gastrointestinal: denies: abdominal pain, nausea, vomiting Musculoskeletal: back pain Neurological: denies: headache, numbness, paresthesias ED Past Medical Hx - Past Medical History Hx Hypertension: Yes Hx CVA: Yes (3 years ago) Hx Congestive Heart Failure: No Hx Diabetes: No Hx Psychiatric Treatment: Yes Hx Asthma: No Hx COPD: No - Surgical History Additional Surgical History: Lives alone but family sees her everyday.. KALLIE - Social History Smoking Status: Former Smoker Substance Use Type: None - Medications Home Medications: Home Medications Medication Instructions Recorded Confirmed Last Taken Type Amlodipine Besylate [Norvasc] 10 mg PO DAILY 04/15/16 06/13/20 Unknown History AtorvaSTATin [Lipitor] 20 mg PO DAILY 04/15/16 06/13/20 Unknown History Potassium Chloride [Klor-Con 10] 10 meq PO DAILY 04/15/16 06/13/20 Unknown History hydroCHLOROthiazide [HCTZ] 25 mg PO QDAY 04/15/16 06/13/20 Unknown History Albuterol Mdi (or & Nicu Only) 1 puff IH Q4H PRN #1 inha 11/06/16 06/13/20 Unknown Rx [ProAir HFA Inhaler] Acetaminophen [Tylenol] 325 mg PO Q4HR 06/13/20 06/13/20 Unknown History Albuterol Mdi (or & Nicu Only) 1 puff IH PRN PRN 06/13/20 06/13/20 Unknown History [ProAir HFA Inhaler] Aspirin [Adult Aspirin] 81 mg PO DAILY 06/13/20 06/13/20 Unknown History DULoxetine [Cymbalta] 60 mg PO QDAY 06/13/20 06/13/20 Unknown History Divalproex [Cary SHOOK] 500 mg PO BID 06/13/20 06/13/20 Unknown History Insulin Glargine,Hum.rec.anlog 60 units SQ BID 06/13/20 06/13/20 Unknown History [Lantus Solostar] Linagliptin [Tradjenta] 5 mg PO QDAY 06/13/20 06/13/20 Unknown History Liraglutide [Victoza 2-Lisandro] 1.8 mg SQ QDAY 06/13/20 06/13/20 Unknown History Lispro Insulin [HumaLOG] 15 unit SQ WMHS 06/13/20 06/13/20 Unknown History Mag Hydrox/Aluminum Hyd/Simeth 30 ml PO Q12H 06/13/20 06/13/20 Unknown History [Maalox Advanced Suspension] Magnesium Hydroxide [Milk of 1,200 mg PO Q48H 06/13/20 06/13/20 Unknown History Magnesia] Memantine Xr [Namenda Xr] 5 mg PO BID 06/13/20 06/13/20 Unknown History Sennosides [Senna] 8.6 mg PO QHS 06/13/20 06/13/20 Unknown History donepeziL [Aricept] 10 mg PO QDAY 06/13/20 06/13/20 Unknown History ED Physical Exam - General General appearance: alert, in no apparent distress - Head Head exam: Present: atraumatic, normocephalic, normal inspection - Eye Eye exam: Present: normal appearance - ENT ENT exam: Present: normal exam, normal orophraynx, mucous membranes moist - Neck Neck exam: Present: normal inspection, full ROM. Absent: tenderness, meningismus - Respiratory Respiratory exam: Present: normal lung sounds bilaterally. Absent: respiratory distress, wheezes, rales, rhonchi, chest wall tenderness - Cardiovascular Cardiovascular Exam: Present: regular rate, normal rhythm, normal heart sounds - GI/Abdominal GI/Abdominal exam: Present: soft, normal bowel sounds. Absent: distended, tenderness, guarding, rebound, rigid, mass, bruit, pulsatile mass, hernia - Extremities Exam Extremities exam: Present: other (Patient is very contracted on the left side.) - Expanded Lower Extremity Exam Left Hip exam: Present: normal inspection, full ROM, tenderness Upper Leg exam: Present: normal inspection, full ROM. Absent: tenderness, swelling Knee exam: Present: normal inspection, full ROM. Absent: tenderness, swelling Lower Leg exam: Present: tenderness. Absent: swelling Ankle exam: Present: normal inspection, full ROM. Absent: tenderness Foot/Toe exam: Present: normal inspection, full ROM. Absent: tenderness, swelling Neuro vascular tendon exam: Present: no vascular compromise ED Course Vital Signs 06/13/20 17:16 Temperature 98.8 F Pulse Rate 99 H Respiratory 16 Rate Blood Pressure 138/77 O2 Sat by Pulse 100 Oximetry - Orthopedic Splinting/Casting Injury #1 Side: left Lower Extremity Injury Location: lower leg Lower Extremity Immobilizer: posterior splint ED Medical Decision Making - Radiology Data Radiology results: report reviewed - Medical Decision Making Patient is 54-year-old female with history of CVA and left sided paralysis. Patient is very contracted in the left side. Patient brought to the emergency room via EMS from [facility] for evaluation after a fall from a wheelchair yesterday, patient had an x-ray done by her primary doctor and found that she had a left tibia fracture and she was sent here for further evaluation and management. Patient is alert, oriented x3 and in no acute distress except for the pain to the left leg. Patient denied any head injury, headache, neck pain, chest pain or abdominal pain. No other extremities pain however patient is also complaining of lower back pain. Patient denied any hip pain. Patient received morphine for pain. X-ray of the lumbar spine is negative for acute finding. X-ray of the left tibia and fibula showed spiral fracture to the left distal tibia there is also a nondisplaced fracture to the proximal fibula. X-ray of the left ankle and left knee is unremarkable. Posterior splint applied to the left lower extremities. Patient is not walking and left lower extremity is extremely contracted. Patient given a follow-up with orthopedics Dr. precision assembler bench Dr. Thornton. Patient given prescription for pain and advised to return to the ER if she develop any more symptoms. Critical care attestation.: If time is entered above; I have spent that time in minutes in the direct care of this critically ill patient, excluding procedure time. ED Disposition Clinical Impression: Fall, Fracture of left tibia and fibula Disposition: DC-01 TO HOME OR SELFCARE Is pt being admited?: No Condition: Stable Instructions: Leg Fracture (ED) Referrals: KAITLIN THORNTON MD [Staff Physician] - 3-5 Days
[2020-06-13] MEDS ORDERED: ONDANSETRON 4 MG/2 ML INJ IM ONE (18:42)
[2020-06-13] MEDS ORDERED: MORPHINE 4 MG/1 ML INJ IM ONE ×2 (18:42→19:55)
--- NOTE | 2020-06-13 18:49 | XRay Report ---
LUMBAR SPINE 3 VIEWS INDICATION / CLINICAL INFORMATION: BACK INJURY. COMPARISON: None available. FINDINGS: Bones appear osteopenic. Very mild degenerative changes. No fracture, subluxation or other acute abno rmality. Signer Name: Vargas Arthur MD Signed: 06/13/2020 6:45 PM Workstation Name: [id number]
--- NOTE | 2020-06-13 18:59 | XRay Report ---
LEFT TIBIA/FIBULA, 5 VIEWS INDICATION / CLINICAL INFORMATION: knee injury. COMPARISON: None available. FINDINGS: There is an oblique possible spiral fracture involving the mid to distal diaphysis of the tibia. The proximal tibia is intact. There is nondisplaced transverse/oblique fracture through the proximal fibu lar diaphysis. IMPRESSION: Nondisplaced proximal fibular diaphyseal fracture. Nondisplaced mid/distal nondisplaced t ibial fracture. LEFT ANKLE, 2 VIEWS INDICATION / CLINICAL INFORMATION: knee injury. COMPARISON: None available. FINDINGS: The ankle is degenerative but appears to be grossly intact. Views are limited and suboptimal, however . The fibular tip is not visualized well. IMPRESSION: Limited visualization of the lateral aspect of the ankle. Given this limitation, no obvio us fracture or malalignment involving the ankle. LEFT KNEE, 3 VIEWS INDICATION / CLINICAL INFORMATION: knee injury. COMPARISON: None available. FINDINGS: The left knee is markedly flexed for these radiographs. The bones are demineralized. There is a nondi splaced transverse fracture through the proximal fibular diaphysis. The proximal tibia appears grossl y intact as does the distal femur and patella. Alignment is difficult to assess due to the marked fle xion positioning. IMPRESSION: Proximal nondisplaced fibular fracture. No convincing evidence for additional fracture of the knee although radiographs are somewhat limited due to poor positioning related to extreme flexio n Signer Name: Milla Salas MD Signed: 06/13/2020 6:54 PM Workstation Name: [id number]
[2020-06-13 23:38] VITALS: BP 147/82
== END 2020-06-13 21:50 | disposition home or self-care (01) ==
LOC: ED 16:38
DX: S82.442A Displaced spiral fracture of shaft of left fibula, initial encounter for closed fracture (principal); S82.242A Displaced spiral fracture of shaft of left tibia, initial encounter for closed fracture; I10 Essential (primary) hypertension; Z86.73 Personal history of transient ischemic attack (TIA), and cerebral infarction without residual deficits; Z87.891 Personal history of nicotine dependence; Z79.4 Long term (current) use of insulin; Z79.899 Other long term (current) drug therapy; W05.0XXA Fall from non-moving wheelchair, initial encounter; Y93.89 Activity, other specified; Y92.89 Other specified places as the place of occurrence of the external cause; Y99.8 Other external cause status
CPT/HCPCS: 29515; 72100; 73560; 73590; 73600; 96372; 99284; J2270; J2405

== ENCOUNTER 2020-09-07 10:35 | Emergency (ER) | payer MEDICAID ==
--- NOTE | 2020-09-07 10:55 | Emergency Department Report ---
ED General Adult HPI - General Stated complaint: HYPERGLYCEMIA Time Seen by Provider: 09/07/20 10:50 - History of Present Illness Initial comments: Patient is a 55-year-old F [place] female who has a past medical history of hemiplegia and hemiparesis following a CVA affecting the left dominant side as well as type 2 diabetes COPD and remote history of schizophrenia pseudobulbar affect who is presenting with elevated blood glucose. Patient states she feels weak but states she has no other complaints. She denies cough cold congestion nausea vomiting or diarrhea. Patient is a resident at [facility]. It appears that her blood glucose level was 410 prior to arrival and she did receive 12 units of regular insulin subcutaneously before being sent to our emergency department. - Related Data Home Medications Medication Instructions Recorded Confirmed Last Taken Amlodipine Besylate [Norvasc] 10 mg PO DAILY 04/15/16 06/13/20 Unknown AtorvaSTATin [Lipitor] 20 mg PO DAILY 04/15/16 06/13/20 Unknown Potassium Chloride [Klor-Con 10] 10 meq PO DAILY 04/15/16 06/13/20 Unknown hydroCHLOROthiazide [HCTZ] 25 mg PO QDAY 04/15/16 06/13/20 Unknown Acetaminophen [Tylenol] 325 mg PO Q4HR 06/13/20 06/13/20 Unknown Albuterol Mdi (or & Nicu Only) 1 puff IH PRN PRN 06/13/20 06/13/20 Unknown [ProAir HFA Inhaler] Aspirin [Adult Aspirin] 81 mg PO DAILY 06/13/20 06/13/20 Unknown DULoxetine [Cymbalta] 60 mg PO QDAY 06/13/20 06/13/20 Unknown Divalproex [Cary SHOOK] 500 mg PO BID 06/13/20 06/13/20 Unknown Insulin Glargine,Hum.rec.anlog 60 units SQ BID 06/13/20 06/13/20 Unknown [Lantus Solostar] Linagliptin [Tradjenta] 5 mg PO QDAY 06/13/20 06/13/20 Unknown Liraglutide [Victoza 2-Lisandro] 1.8 mg SQ QDAY 06/13/20 06/13/20 Unknown Lispro Insulin [HumaLOG] 15 unit SQ WMHS 06/13/20 06/13/20 Unknown Mag Hydrox/Aluminum Hyd/Simeth 30 ml PO Q12H 06/13/20 06/13/20 Unknown [Maalox Advanced Suspension] Magnesium Hydroxide [Milk of 1,200 mg PO Q48H 06/13/20 06/13/20 Unknown Magnesia] Memantine Xr [Namenda Xr] 5 mg PO BID 06/13/20 06/13/20 Unknown Sennosides [Senna] 8.6 mg PO QHS 06/13/20 06/13/20 Unknown donepeziL [Aricept] 10 mg PO QDAY 06/13/20 06/13/20 Unknown Previous Rx's Medication Instructions Recorded Last Taken Type Albuterol Mdi (or & Nicu Only) 1 puff IH Q4H PRN #1 inha 11/06/16 Unknown Rx [ProAir HFA Inhaler] HYDROcodone/APAP 5-325 [[place] 1 each PO Q6HR PRN #20 tablet 06/13/20 Unknown Rx 5/325] Ondansetron [Zofran Odt] 4 mg PO Q8HR PRN #20 tab.rapdis 06/13/20 Unknown Rx Potassium Chloride [K-Dur] 10 meq PO QDAY #7 tablet 09/07/20 Unknown Rx Allergies Allergy/AdvReac Type Severity Reaction Status Date / Time No Known Allergies Allergy Unverified 09/21/13 21:31 ED Review of Systems ROS: Stated complaint: HYPERGLYCEMIA Other details as noted in HPI Comment: All other systems reviewed and negative ED Past Medical Hx - Past Medical History Hx Hypertension: Yes Hx CVA: Yes (3 years ago) Hx Congestive Heart Failure: No Hx Diabetes: No Hx Psychiatric Treatment: Yes Hx Asthma: No Hx COPD: No - Surgical History Additional Surgical History: Lives alone but family sees her everyday.. KALLIE - Social History Smoking Status: Former Smoker Substance Use Type: None - Medications Home Medications: Home Medications Medication Instructions Recorded Confirmed Last Taken Type Amlodipine Besylate [Norvasc] 10 mg PO DAILY 04/15/16 06/13/20 Unknown History AtorvaSTATin [Lipitor] 20 mg PO DAILY 04/15/16 06/13/20 Unknown History Potassium Chloride [Klor-Con 10] 10 meq PO DAILY 04/15/16 06/13/20 Unknown Hist ory hydroCHLOROthiazide [HCTZ] 25 mg PO QDAY 04/15/16 06/13/20 Unknown History Albuterol Mdi (or & Nicu Only) 1 puff IH Q4H PRN #1 inha 11/06/16 06/13/20 Unknown Rx [ProAir HFA Inhaler] Acetaminophen [Tylenol] 325 mg PO Q4HR 06/13/20 06/13/20 Unknown History Albuterol Mdi (or & Nicu Only) 1 puff IH PRN PRN 06/13/20 06/13/20 Unknown History [ProAir HFA Inhaler] Aspirin [Adult Aspirin] 81 mg PO DAILY 06/13/20 06/13/20 Unknown History DULoxetine [Cymbalta] 60 mg PO QDAY 06/13/20 06/13/20 Unknown History Divalproex [Cary SHOOK] 500 mg PO BID 06/13/20 06/13/20 Unknown History HYDROcodone/APAP 5-325 [[place] 1 each PO Q6HR PRN #20 tablet 06/13/20 Unknown Rx 5/325] Insulin Glargine,Hum.rec.anlog 60 units SQ BID 06/13/20 06/13/20 Unknown History [Lantus Solostar] Linagliptin [Tradjenta] 5 mg PO QDAY 06/13/20 06/13/20 Unknown History Liraglutide [Victoza 2-Lisandro] 1.8 mg SQ QDAY 06/13/20 06/13/20 Unknown History Lispro Insulin [HumaLOG] 15 unit SQ WMHS 06/13/20 06/13/20 Unknown History Mag Hydrox/Aluminum Hyd/Simeth 30 ml PO Q12H 06/13/20 06/13/20 Unknown History [Maalox Advanced Suspension] Magnesium Hydroxide [Milk of 1,200 mg PO Q48H 06/13/20 06/13/20 Unknown History Magnesia] Memantine Xr [Namenda Xr] 5 mg PO BID 06/13/20 06/13/20 Unknown History Ondansetron [Zofran Odt] 4 mg PO Q8HR PRN #20 tab.rapdis 06/13/20 Unknown Rx Sennosides [Senna] 8.6 mg PO QHS 06/13/20 06/13/20 Unknown History donepeziL [Aricept] 10 mg PO QDAY 06/13/20 06/13/20 Unknown History Potassium Chloride [K-Dur] 10 meq PO QDAY #7 tablet 09/07/20 Unknown Rx ED Physical Exam - General Limitations: Physical Limitation General appearance: alert, in no apparent distress - Head Head exam: Present: atraumatic, normocephalic - Eye Eye exam: Present: normal appearance, PERRL, EOMI - ENT ENT exam: Present: mucous membranes moist - Neck Neck exam: Present: normal inspection - Respiratory Respiratory exam: Present: normal lung sounds bilaterally. Absent: respiratory distress, wheezes, rales, rhonchi - Cardiovascular Cardiovascular Exam: Present: regular rate, normal rhythm, normal heart sounds. Absent: systolic murmur, diastolic murmur, rubs, gallop - GI/Abdominal GI/Abdominal exam: Present: soft, normal bowel sounds. Absent: distended, tenderness, guarding, rebound, rigid - Extremities Exam Extremities exam: Present: normal inspection - Back Exam Back exam: Present: normal inspection - Neurological Exam Neurological exam: Present: alert, oriented X3, motor sensory deficit (left sided weakness) - Psychiatric Psychiatric exam: Present: normal affect, normal mood - Skin Skin exam: Present: warm, dry, intact, normal color. Absent: rash ED Course Vital Signs 09/07/20 10:39 Temperature 97.9 F Pulse Rate 72 Respiratory 18 Rate Blood Pressure 133/73 O2 Sat by Pulse 98 Oximetry ED Medical Decision Making - Lab Data Result diagrams: 09/07/20 11:20 09/07/20 11:20 Lab Results 09/07/20 09/07/20 09/07/20 Range/Units 11:20 11:20 13:51 WBC 6.9 (4.5-11.0) K/mm3 RBC 4.63 (3.65-5.03) M/mm3 Hgb 14.2 (10.1-14.3) gm/dl Hct 40.9 (30.3-42.9) % MCV 88 (79-97) fl MCH 31 (28-32) pg MCHC 35 H (30-34) % RDW 13.3 (13.2-15.2) % Plt Count 199 (140-440) K/mm3 Lymph % (Auto) 39.7 H (13.4-35.0) % [place] % (Auto) 8.9 H (0.0-7.3) % Eos % (Auto) 1.6 (0.0-4.3) % Baso % (Auto) 0.7 (0.0-1.8) % Lymph # (Auto) 2.7 (1.2-5.4) K/mm3 [place] # (Auto) 0.6 (0.0-0.8) K/mm3 Eos # (Auto) 0.1 (0.0-0.4) K/mm3 Baso # (Auto) 0.0 (0.0-0.1) K/mm3 Seg Neutrophils % 49.1 (40.0-70.0) % Seg Neutrophils # 3.4 (1.8-7.7) K/mm3 Sodium 139 (137-145) mmol/L Potassium 2.7 L* (3.6-5.0) mmol/L Chloride 98.7 (98-107) mmol/L Carbon Dioxide 32 H (22-30) mmol/L Anion Gap 11 mmol/L BUN 12 (7-17) mg/dL Creatinine 0.7 (0.6-1.2) mg/dL Estimated GFR > 60 ml/min BUN/Creatinine Ratio 17 % Glucose 320 H (65-100) mg/dL POC Glucose (70-105) mg/dL Calcium 9.3 (8.4-10.2) mg/dL Total Bilirubin 0.20 (0.1-1.2) mg/dL AST 7 (5-40) units/L ALT 10 (7-56) units/L Alkaline Phosphatase 118 (35-129) units/L Total Protein 7.1 (6.3-8.2) g/dL Albumin 3.6 L (3.9-5) g/dL Albumin/Globulin Ratio 1.0 % Urine Color Straw (Yellow) Urine Turbidity Clear (Clear) Urine pH 5.0 (5.0-7.0) Ur Specific [place] 1.020 (1.003-1.030) Urine Protein <15 mg/dl (Negative) mg/dL Urine Glucose (UA) >=500 (Negative) mg/dL Urine Ketones Neg (Negative) mg/dL Urine Blood Neg (Negative) Urine Nitrite Neg (Negative) Urine Bilirubin Neg (Negative) Urine Urobilinogen < 2.0 (<2.0) mg/dL Ur Leukocyte Esterase Neg (Negative) Urine WBC (Auto) < 1.0 (0.0-6.0) /HPF Urine RBC (Auto) < 1.0 (0.0-6.0) /HPF U Epithel Cells (Auto) 1.0 (0-13.0) /HPF Urine Bacteria (Auto) 1+ (Negative) /HPF 09/07/20 Range/Units 16:24 WBC (4.5-11.0) K/mm3 RBC (3.65-5.03) M/mm3 Hgb (10.1-14.3) gm/dl Hct (30.3-42.9) % MCV (79-97) fl MCH (28-32) pg MCHC (30-34) % RDW (13.2-15.2) % Plt Count (140-440) K/mm3 Lymph % (Auto) (13.4-35.0) % [place] % (Auto) (0.0-7.3) % Eos % (Auto) (0.0-4.3) % Baso % (Auto) (0.0-1.8) % Lymph # (Auto) (1.2-5.4) K/mm3 [place] # (Auto) (0.0-0.8) K/mm3 Eos # (Auto) (0.0-0.4) K/mm3 Baso # (Auto) (0.0-0.1) K/mm3 Seg Neutrophils % (40.0-70.0) % Seg Neutrophils # (1.8-7.7) K/mm3 Sodium (137-145) mmol/L Potassium (3.6-5.0) mmol/L Chloride (98-107) mmol/L Carbon Dioxide (22-30) mmol/L Anion Gap mmol/L BUN (7-17) mg/dL Creatinine (0.6-1.2) mg/dL Estimated GFR ml/min BUN/Creatinine Ratio % Glucose (65-100) mg/dL POC Glucose 171 H (70-105) mg/dL Calcium (8.4-10.2) mg/dL Total Bilirubin (0.1-1.2) mg/dL AST (5-40) units/L ALT (7-56) units/L Alkaline Phosphatase (35-129) units/L Total Protein (6.3-8.2) g/dL Albumin (3.9-5) g/dL Albumin/Globulin Ratio % Urine Color (Yellow) Urine Turbidity (Clear) Urine pH (5.0-7.0) Ur Specific [place] (1.003-1.030) Urine Protein (Negative) mg/dL Urine Glucose (UA) (Negative) mg/dL Urine Ketones (Negative) mg/dL Urine Blood (Negative) Urine Nitrite (Negative) Urine Bilirubin (Negative) Urine Urobilinogen (<2.0) mg/dL Ur Leukocyte Esterase (Negative) Urine WBC (Auto) (0.0-6.0) /HPF Urine RBC (Auto) (0.0-6.0) /HPF U Epithel Cells (Auto) (0-13.0) /HPF Urine Bacteria (Auto) (Negative) /HPF - Medical Decision Making Patient was hydrated with 2 L of normal saline her blood glucose did decrease. Patient did have a low potassium was given oral supplement. No evidence of any infection was found. Patient states after the fluids that she is feeling better and has more energy. [facility] Critical care attestation.: If time is entered above; I have spent that time in minutes in the direct care of this critically ill patient, excluding procedure time. ED Disposition Clinical Impression: Hyperglycemia, Mild dehydration, Hypokalemia Disposition: DC-01 TO HOME OR SELFCARE Is pt being admited?: No Does the pt Need Aspirin: No Condition: Stable Instructions: Dehydration, Adult, [id number], Hyperglycemia, [id number], Hypokalemia Prescriptions: Potassium Chloride [K-Dur] 10 meq PO QDAY #7 tablet Time of Disposition: 16:47
[2020-09-07] MEDS ORDERED: SODIUM CHLORIDE 0.9% 1000 ML 1,000 ML IV ONE (10:56)
[2020-09-07 11:57] LABS: Alanine Aminotransferase 10 units/L (7-56); Albumin 3.6 g/dL (3.9-5); Blood Urea Nitrogen 12 mg/dL (7-17); Calcium 9.3 mg/dL (8.4-10.2); Hemolysis Index 6
[2020-09-07 12:00] LABS: BUN/Creatinine Ratio 17
[2020-09-07 12:01] LABS: Basophils % (Auto) 0.7 % (0.0-1.8); Eosinophils # (Auto) 0.1 K/mm3 (0.0-0.4); Eosinophils % (Auto) 1.6 % (0.0-4.3); Hematocrit 40.9 % (30.3-42.9); Hemoglobin 14.2 gm/dl (10.1-14.3); Lymphocytes # (Auto) 2.7 K/mm3 (1.2-5.4); Lymphocytes % (Auto) 39.7 % (13.4-35.0); Mean Corpuscular HGB Conc 35 % (30-34); Mean Corpuscular Volume 88 fl (79-97); Monocytes # (Auto) 0.6 K/mm3 (0.0-0.8); Monocytes % (Auto) 8.9 % (0.0-7.3); Platelet Count 199 K/mm3 (140-440); Red Blood Count 4.63 M/mm3 (3.65-5.03); Red Cell Distribution Width 13.3 % (13.2-15.2)
[2020-09-07] MEDS ORDERED: POTASSIUM CHLORIDE ER 20 MEQ TAB PO ONE (12:37)
[2020-09-07] MEDS: SODIUM CHLORIDE 0.9% 1000 ML 1,000 ML IV ONE ×2 (13:51→13:52)
[2020-09-07 15:17] LABS: Bacteria,Urine 1+ /HPF (Negative); Bilirubin,Urine NEG (Negative); Blood,Urine NEG (Negative); Color,Urine Straw (Yellow); Protein,Urine <15 mg/dL mg/dL (Negative); RBC,Urine < 1.0 /HPF (0.0-6.0); Urobilinogen,Urine < 2.0 mg/dL (<2.0); WBC,Urine < 1.0 /HPF (0.0-6.0)
[2020-09-07 17:57] VITALS: BP 108/59
== END 2020-09-07 18:03 | disposition home or self-care (01) ==
LOC: ED 10:35
DX: E87.6 Hypokalemia (principal); R73.9 Hyperglycemia, unspecified; I10 Essential (primary) hypertension; Z86.73 Personal history of transient ischemic attack (TIA), and cerebral infarction without residual deficits; Z87.891 Personal history of nicotine dependence
CPT/HCPCS: 36415; 80053; 81001; 82962; 85025; 96360; 96361

== ENCOUNTER 2020-09-12 00:11 | Emergency (ER) | payer MEDICAID ==
[2020-09-12] MEDS ORDERED: ACETAMINOPHEN 325 MG/10.15 ML ORAL LIQD UNIT DOSE PO ONE (02:04)
--- NOTE | 2020-09-12 02:04 | Emergency Department Report ---
ED General Adult HPI - General Chief complaint: Fall Stated complaint: GROUND LEVEL FALL PUI?: No Time Seen by Provider: 09/12/20 01:25 Source: patient, RN notes reviewed, old records reviewed Mode of arrival: Stretcher Limitations: Physical Limitation, Other (Patient is a poor historian) - History of Present Illness Initial comments: The patient was evaluated in the emergency department for symptoms described in the history of present illness. He/she was evaluated in the context of the global COVID-19 pandemic, which necessitated consideration that the patient might be at risk for infection with the virus that causes COVID-19. Institutional protocols and algorithms that pertain to the evaluation of patients at risk for COVID-19 are in a state of rapid change based on information released by regulatory bodies including the CDC and federal and state organizations. These policies and algorithms were followed during the patient's care in the emergency department. Please note that these policies, procedures and recommendations changed on a rapid basis. Patient is a 55-year-old female. The patient was seen in this department a few days ago for hyperglycemia, and had a fairly extensive medical work-up all performed in this emergency room. She is sent to the emergency room today by her personal fdc for evaluation of unwitnessed fall. The patient tells me that she fell landed on her head, while attempting to drink some water. She informs me that prior to the fall, she was not having any symptoms. The patient complains of a headache. She has chronic left-sided weakness. This is secondary to an old stroke. The patient denies cough, loss of taste and loss of smell. The patient has no other complaints at this time. The patient is asking to eat and drink. Patient is not accompanied by friends or family at this time for collateral information or additional history. It appears that her primary care doctor is Dr. Rocky Sarabia. The patient was observed in this ER for hours without clinical decompensation. -: Sudden Location: head Quality: aching Improves with: none Worsens with: none Associated Symptoms: denies other symptoms - Related Data Home Medications Medication Instructions Recorded Confirmed Last Taken Amlodipine Besylate [Norvasc] 10 mg PO DAILY 04/15/16 06/13/20 Unknown AtorvaSTATin [Lipitor] 20 mg PO DAILY 04/15/16 06/13/20 Unknown Potassium Chloride [Klor-Con 10] 10 meq PO DAILY 04/15/16 06/13/20 Unknown hydroCHLOROthiazide [HCTZ] 25 mg PO QDAY 04/15/16 06/13/20 Unknown Acetaminophen [Tylenol] 325 mg PO Q4HR 06/13/20 06/13/20 Unknown Albuterol Mdi (or & Nicu Only) 1 puff IH PRN PRN 06/13/20 06/13/20 Unknown [ProAir HFA Inhaler] Aspirin [Adult Aspirin] 81 mg PO DAILY 06/13/20 06/13/20 Unknown DULoxetine [Cymbalta] 60 mg PO QDAY 06/13/20 06/13/20 Unknown Divalproex [Cary SHOOK] 500 mg PO BID 06/13/20 06/13/20 Unknown Insulin Glargine,Hum.rec.anlog 60 units SQ BID 06/13/20 06/13/20 Unknown [Lantus Solostar] Linagliptin [Tradjenta] 5 mg PO QDAY 06/13/20 06/13/20 Unknown Liraglutide [Victoza 2-Lisandro] 1.8 mg SQ QDAY 06/13/20 06/13/20 Unknown Lispro Insulin [HumaLOG] 15 unit SQ WMHS 06/13/20 06/13/20 Unknown Mag Hydrox/Aluminum Hyd/Simeth 30 ml PO Q12H 06/13/20 06/13/20 Unknown [Maalox Advanced Suspension] Magnesium Hydroxide [Milk of 1,200 mg PO Q48H 06/13/20 06/13/20 Unknown Magnesia] Memantine Xr [Namenda Xr] 5 mg PO BID 06/13/20 06/13/20 Unknown Sennosides [Senna] 8.6 mg PO QHS 06/13/20 06/13/20 Unknown donepeziL [Aricept] 10 mg PO QDAY 06/13/20 06/13/20 Unknown Previous Rx's Medication Instructions Recorded Last Taken Type Albuterol Mdi (or & Nicu Only) 1 puff IH Q4H PRN #1 inha 11/06/16 Unknown Rx [ProAir HFA Inhaler] HYDROcodone/APAP 5-325 [[place] 1 each PO Q6HR PRN #20 tablet 06/13/20 Unknown Rx 5/325] Ondansetron [Zofran Odt] 4 mg PO Q8HR PRN #20 tab.rapdis 06/13/20 Unknown Rx Potassium Chloride [K-Dur] 10 meq PO QDAY #7 tablet 09/07/20 Unknown Rx Allergies Allergy/AdvReac Type Severity Reaction Status Date / Time No Known Allergies Allergy Unverified 09/21/13 21:31 ED Review of Systems ROS: Stated complaint: GROUND LEVEL FALL Other details as noted in HPI Constitutional: denies: fever Respiratory: denies: cough Cardiovascular: denies: chest pain Gastrointestinal: denies: abdominal pain Genitourinary: denies: dysuria Neurological: headache, other (Chronic left-sided weakness) ED Past Medical Hx - Past Medical History Previous Medical History?: Yes Hx Hypertension: Yes Hx CVA: Yes (3 years ago) Hx Heart Attack/AMI: No Hx Congestive Heart Failure: No Hx Diabetes: No Hx Deep Vein Thrombosis: No Hx Pulmonary Embolism: No Hx GERD: No Hx Liver Disease: No Hx Renal Disease: No Hx Sickle Cell Disease: No Hx Arthritis: No Hx Headaches / Migraines: No Hx Seizures: No Hx Kidney Stones: No Hx Psychiatric Treatment: Yes Hx Asthma: No Hx COPD: No Hx Tuberculosis: No Hx Dementia: No Hx HIV: No - Surgical History Hx Coronary Stent: No Hx Open Heart Surgery: No Hx Pacemaker: No Hx Internal Defibrillator: No Hx Cholecystectomy: No Hx Appendectomy: No Hx Breast Surgery: No Additional Surgical History: Lives alone but family sees her everyday.. KALLIE - Social History Smoking Status: Former Smoker - Medications Home Medications: Home Medications Medication Instructions Recorded Confirmed Last Taken Type Amlodipine Besylate [Norvasc] 10 mg PO DAILY 04/15/16 06/13/20 Unknown History AtorvaSTATin [Lipitor] 20 mg PO DAILY 04/15/16 06/13/20 Unknown History Potassium Chloride [Klor-Con 10] 10 meq PO DAILY 04/15/16 06/13/20 Unknown History hydroCHLOROthiazide [HCTZ] 25 mg PO QDAY 04/15/16 06/13/20 Unknown History Albuterol Mdi (or & Nicu Only) 1 puff IH Q4H PRN #1 inha 11/06/16 06/13/20 Unknown Rx [ProAir HFA Inhaler] Acetaminophen [Tylenol] 325 mg PO Q4HR 06/13/20 06/13/20 Unknown History Albuterol Mdi (or & Nicu Only) 1 puff IH PRN PRN 06/13/20 06/13/20 Unknown History [ProAir HFA Inhaler] Aspirin [Adult Aspirin] 81 mg PO DAILY 06/13/20 06/13/20 Unknown History DULoxetine [Cymbalta] 60 mg PO QDAY 06/13/20 06/13/[address] [DepaKOTE DR] 500 mg PO BID 06/13/20 06/13/20 Unknown History HYDROcodone/APAP 5-325 [[place] 1 each PO Q6HR PRN #20 tablet 06/13/20 Unknown Rx 5/325] Insulin Glargine,Hum.rec.anlog 60 units SQ BID 06/13/20 06/13/20 Unknown History [Lantus Solostar] Linagliptin [Tradjenta] 5 mg PO QDAY 06/13/20 06/13/20 Unknown History Liraglutide [Victoza 2-Lisandro] 1.8 mg SQ QDAY 06/13/20 06/13/20 Unknown History Lispro Insulin [HumaLOG] 15 unit SQ WMHS 06/13/20 06/13/20 Unknown History Mag Hydrox/Aluminum Hyd/Simeth 30 ml PO Q12H 06/13/20 06/13/20 Unknown History [Maalox Advanced Suspension] Magnesium Hydroxide [Milk of 1,200 mg PO Q48H 06/13/20 06/13/20 Unknown History Magnesia] Memantine Xr [Namenda Xr] 5 mg PO BID 06/13/20 06/13/20 Unknown History Ondansetron [Zofran Odt] 4 mg PO Q8HR PRN #20 tab.rapdis 06/13/20 Unknown Rx Sennosides [Senna] 8.6 mg PO QHS 06/13/20 06/13/20 Unknown History donepeziL [Aricept] 10 mg PO QDAY 06/13/20 06/13/20 Unknown History Potassium Chloride [K-Dur] 10 meq PO QDAY #7 tablet 09/07/20 Unknown Rx ED Physical Exam - General Limitations: Physical Limitation General appearance: alert, in no apparent distress, obese - Head Head exam: Present: atraumatic, normocephalic - Eye Eye exam: Present: normal appearance, EOMI. Absent: nystagmus - ENT ENT exam: Present: normal exam, normal orophraynx, mucous membranes moist, normal external ear exam - Neck Neck exam: Present: normal inspection, full ROM. Absent: tenderness, meningismus - Respiratory Respiratory exam: Present: normal lung sounds bilaterally. Absent: respiratory distress, wheezes, rales, rhonchi, stridor, decreased breath sounds - Cardiovascular Cardiovascular Exam: Present: regular rate, normal rhythm, normal heart sounds. Absent: bradycardia, tachycardia, irregular rhythm, systolic murmur, diastolic murmur, rubs, gallop - GI/Abdominal GI/Abdominal exam: Present: soft. Absent: distended, tenderness, guarding, rebound, rigid, pulsatile mass - Extremities Exam Extremities exam: Present: normal inspection (Contraction noted in the left lower extremity, left upper extremity), full ROM, other (2+ pulses noted in the bilateral upper and lower extremities. There is no palpable cord. negative Homans sign. Muscular compartments are soft. The pelvis is stable.). Absent: calf tenderness - Back Exam Back exam: Present: normal inspection. Absent: tenderness, CVA tenderness (R), CVA tenderness (L), paraspinal tenderness, vertebral tenderness - Neurological Exam Neurological exam: Present: alert, other (There is no facial droop. The tongue is midline. There is 5 out of 5 strength in the right arm and right leg. Contractures noted in the left arm and left leg. Sensation is intact to light touch in 4 extremities) - Psychiatric Psychiatric exam: Present: flat affect - Skin Skin exam: Present: warm, dry, intact, normal color. Absent: rash ED Course Vital Signs 09/12/20 09/12/20 09/12/20 00:56 00:57 01:08 Temperature 98.8 F Pulse Rate 78 Respiratory 18 18 Rate Blood Pressure Blood Pressure 98/54 [Right] O2 Sat by Pulse 94 96 97 Oximetry 09/12/20 09/12/20 09/12/20 01:10 01:15 01:31 Temperature Pulse Rate 75 68 73 Respiratory 12 9 L 11 L Rate Blood Pressure 88/59 88/59 88/59 Blood Pressure [Right] O2 Sat by Pulse 94 94 94 Oximetry 09/12/20 09/12/20 09/12/20 01:53 02:00 02:15 Temperature Pulse Rate 84 Respiratory 18 Rate Blood Pressure 88/59 105/69 105/69 Blood Pressure [Right] O2 Sat by Pulse 96 95 95 Oximetry 09/12/20 03:30 Temperature Pulse Rate Respiratory 18 Rate Blood Pressure Blood Pressure [Right] O2 Sat by Pulse Oximetry ED Medical Decision Making - Lab Data Vital Signs 09/12/20 09/12/20 09/12/20 00:56 00:57 01:08 Temperature 98.8 F Pulse Rate 78 Respiratory 18 18 Rate Blood Pressure Blood Pressure 98/54 [Right] O2 Sat by Pulse 94 96 97 Oximetry 09/12/20 09/12/20 09/12/20 01:10 01:15 01:31 Temperature Pulse Rate 75 68 73 Respiratory 12 9 L 11 L Rate Blood Pressure 88/59 88/59 88/59 Blood Pressure [Right] O2 Sat by Pulse 94 94 94 Oximetry 09/12/20 09/12/20 09/12/20 01:53 02:00 02:15 Temperature Pulse Rate 84 Respiratory 18 Rate Blood Pressure 88/59 105/69 105/69 Blood Pressure [Right] O2 Sat by Pulse 96 95 95 Oximetry 09/12/20 03:30 Temperature Pulse Rate Respiratory 18 Rate Blood Pressure Blood Pressure [Right] O2 Sat by Pulse Oximetry Lab Results 09/12/20 Range/Units 02:11 POC Glucose 251 H (70-105) mg/dL - Radiology Data Radiology results: report reviewed, image reviewed CT head without contrast HISTORY: Patient had a fall with trauma to her head.. TECHNIQUE: Axial imaging performed from the skull apex through the skull base without the use of contrast. All CT scans at this location are performed using CT dose reduction for ALARA by means of automated exposure control. COMPARISON: CT head from 01/06/2020 FINDINGS: Parenchyma: No acute intracranial hemorrhage or parenchymal abnormality. Multiple areas of encephalomalacia again seen throughout the brain. Ventricles: There is mild diffuse brain atrophy with commensurate ventricular enlargement which is likely age appropriate. Soft tissues: Soft tissues including the orbits appear normal. Bones: No acute osseous abnormality. Sinuses: Sinuses and mastoid air cells are clear. IMPRESSION: No acute abnormality. Signer Name: Gabriel Santana MD Signed: 09/12/2020 1:[address] cervical spine without contrast INDICATION: Patient had a fall with trauma to her neck.. TECHNIQUE: Axial imaging performed through the cervical spine without the use of contrast. Sagittal and coronal reconstructed images were also reviewed. All CT scans at this location are performed using CT dose reduction for ALARA by means of automated exposure control. COMPARISON: None FINDINGS: Alignment: Spinal alignment is normal. Bones: There is no acute osseous abnormality. Mild multilevel discogenic DJD is present. Soft tissues: No acute or significant incidental soft tissue abnormality. IMPRESSION: No acute abnormality. Signer Name: Gabriel Santana MD Signed: 09/12/2020 1:28 AM - Medical Decision Making Differential diagnosis, including but not limited to: Fall, closed head injury, cervical spine injury Assessment and plan: 55-year-old female, recently here in this emergency room for medical evaluation for hyperglycemia, please see her chart from her previous visit for the details of that particular case, sent here today from her fdc with a complaint of fall, most likely mechanical. Patient afebrile, with reassuring vital signs and in no acute distress. Given history of closed head injury, inability to clear the C-spine through Nexus/[place] C-spine rule, noncontrast CT scan of the brain, and cervical spine are obtained, and they were negative for acute traumatic findings. Accu-Chek acceptable, vital signs acceptable at this time. Patient observed in this ER for hours without clinical decompensation, and on multiple repeat evaluations, is seen resting comfortably in her stretcher, and in no acute distress. After initial ER work-up, patient does not appear to have an emergent medical condition present today, she was given acetaminophen for her headache, and she can follow-up with her outpatient primary care doctor. She is suitable to be discharged back to her care facility at this time. Critical care attestation.: If time is entered above; I have spent that time in minutes in the direct care of this critically ill patient, excluding procedure time. ED Disposition Clinical Impression: Fall Qualifiers: Encounter type: initial encounter Qualified Code(s): W19.XXXA - Unspecified fall, initial encounter Closed head injury Qualifiers: Encounter type: initial encounter Qualified Code(s): S09.90XA - Unspecified injury of head, initial encounter Headache Qualifiers: Headache type: unspecified Headache chronicity pattern: acute headache Intractability: not intractable Qualified Code(s): R51.9 - Headache, unspecified Disposition: [id number] HOME UNDER HOME HLTH Is pt being admited?: No Does the pt Need Aspirin: No Condition: Stable Instructions: Head Injury, Adult, [id number] Additional Instructions: CT scan of the brain and cervical spine showed no acute traumatic findings. Pain typically gets worse before it gets better after mild blunt trauma. Recommend that patient be placed on fall precautions. Patient may have acetaminophen, [id number], 500 mg by mouth, every 4-6 hours as needed for pain, maximum daily dose of acetaminophen to not exceed 3 g per 24 hours. Recommend avoidance of heavy lifting and strenuous physical activities. Patient may continue her home medications otherwise. Please follow-up with your primary care doctor within the next 3 days. Please return to the emergency room right away with new pain, worsened pain, migration of pain, projectile vomiting, change in mental status, confusion, inability to tolerate liquid feeds, new, worsened or different symptoms not present on the initial emergency room evaluation. Referrals: ROCKY SARABIA MD [Primary Care Provider] - 3-5 Days Time of Disposition: 03:55 (Discharge back to her care facility)
--- NOTE | 2020-09-12 02:32 | Cat Scan Report ---
CT cervical spine without contrast INDICATION: Patient had a fall with trauma to her neck.. TECHNIQUE: Axial imaging performed through the cervical spine without the use of contrast. Sagittal and coronal reconstructed images were also reviewed. All CT scans at this location are performed us ing CT dose reduction for ALARA by means of automated exposure control. COMPARISON: None FINDINGS: Alignment: Spinal alignment is normal. Bones: There is no acute osseous abnormality. Mild multilevel discogenic DJD is present. Soft tissues: No acute or significant incidental soft tissue abnormality. IMPRESSION: No acute abnormality. Signer Name: Gabriel Santana MD Signed: 09/12/2020 2:28 AM Workstation Name: [email or web address]
--- NOTE | 2020-09-12 02:32 | Cat Scan Report ---
CT head without contrast HISTORY: Patient had a fall with trauma to her head.. TECHNIQUE: Axial imaging performed from the skull apex through the skull base without the use of con trast. All CT scans at this location are performed using CT dose reduction for ALARA by means of aut omated exposure control. COMPARISON: CT head from 01/06/2020 FINDINGS: Parenchyma: No acute intracranial hemorrhage or parenchymal abnormality. Multiple areas of encephalo malacia again seen throughout the brain. Ventricles: There is mild diffuse brain atrophy with commensurate ventricular enlargement which is l ikely age appropriate. Soft tissues: Soft tissues including the orbits appear normal. Bones: No acute osseous abnormality. Sinuses: Sinuses and mastoid air cells are clear. IMPRESSION: No acute abnormality. Signer Name: Gabriel Santana MD Signed: 09/12/2020 2:27 AM Workstation Name: [id number]
[2020-09-12 07:56] VITALS: BP 104/58
== END 2020-09-12 12:32 | disposition home health service (06) ==
LOC: ED 00:11
DX: S09.90XA Unspecified injury of head, initial encounter (principal); R51.9 Headache, unspecified; I10 Essential (primary) hypertension; Z86.73 Personal history of transient ischemic attack (TIA), and cerebral infarction without residual deficits; Z87.891 Personal history of nicotine dependence; Z79.4 Long term (current) use of insulin; Z79.899 Other long term (current) drug therapy; W19.XXXA Unspecified fall, initial encounter; Y93.89 Activity, other specified; Y92.89 Other specified places as the place of occurrence of the external cause; Y99.8 Other external cause status
CPT/HCPCS: 70450; 72125; 82962